=== PATIENT | male | born 1990 | race Caucasian/White ===

== ENCOUNTER 2017-02-13 21:41 | Emergency (ER) | payer MEDICAID ==
[2017-02-13 21:53] VITALS: RESP 16; TEMP 98; O2SAT 99
[2017-02-13 21:54] VITALS: PULSE 54
--- NOTE | 2017-02-13 23:21 | ED PDOC ---
HPI: General Adult Time Seen by Provider: 02/13/17 22:12 Chief Complaint (Nursing): Medical Clearance Chief Complaint (Provider): Chest pain when coughing, feverish History Per: Patient History/Exam Limitations: no limitations Onset/Duration Of Symptoms: Days Have you had recent travel within the past 21 days to any of the following countries: [place], [place], [place] or [place]?: No Current Symptoms Are (Timing): Still Present Additional Complaint(s): Pt states he has been coughing for a week and has chest pain when he is coughing. Pt also reports feeling feverish. Pt states his has history of bipolar disorder and has been taking hsi medications as prescribed. Pt denies SI/HI in ER and is cooperative. Past Medical History Reviewed: Historical Data, Nursing Documentation, Vital Signs Vital Signs: Last Vital Signs Temp 98.0 F 02/13/17 21:47 Pulse 54 L 02/13/17 21:47 Resp 16 02/13/17 21:47 BP Pulse Ox 99 02/13/17 23:21 - Medical History PMH: Bipolar Disorder, Depression, Schizophrenia - Family History Family History: States: No Known Family Hx - Living Arrangements Living Arrangements: With Family - Social History Alcohol: Occasional Drugs: Cannabis, Cocaine, Opiates - Allergies Allergies/Adverse Reactions: Allergies Allergy/AdvReac Type Severity Reaction Status Date / Time Penicillins Allergy RASH Verified 02/13/17 21:46 Review of Systems ROS Statement: Except As Marked, All Systems Reviewed And Found Negative Cardiovascular: Positive for: Chest Pain Respiratory: Positive for: Cough Physical Exam - Reviewed Nursing Documentation Reviewed: Yes Vital Signs Reviewed: Yes - Physical Exam Appears: Positive for: Well, Non-toxic, No Acute Distress Head Exam: Positive for: ATRAUMATIC, NORMAL INSPECTION, NORMOCEPHALIC Skin: Positive for: Normal Color, Warm, DRY Eye Exam: Positive for: Normal appearance ENT: Positive for: Normal ENT Inspection Neck: Positive for: Normal, Painless ROM Cardiovascular/Chest: Positive for: Regular Rate, Rhythm Respiratory: Positive for: Normal Breath Sounds. Negative for: Accessory Muscle Use, Respiratory Distress Gastrointestinal/Abdominal: Positive for: Normal Exam, Bowel Sounds, Soft Back: Positive for: Normal Inspection Extremity: Positive for: Normal ROM Neurologic/Psych: Positive for: Alert, Oriented - Laboratory Results Result Diagrams: 02/13/17 23:25 02/13/17 23:25 - ECG O2 Sat by Pulse Oximetry: 99 Pulse Ox Interpretation: Normal Medical Decision Making Medical Decision Making: Abnormal EKG. Labs ordered. cxr - normal Troponin negative. Disposition - Clinical Impression Clinical Impression: URI (upper respiratory infection) - Patient ED Disposition Is Patient to be Admitted: No Counseled Patient/Family Regarding: Diagnosis, Need For Followup, Rx Given - Disposition Disposition: Routine/Home Disposition Time: 00:01 Condition: GOOD Additional Instructions: Pt. is medically and psychiatrically stable for incarceration. Instructions: Upper Respiratory Infection (ED)
[2017-02-13 23:31] LABS: HEMATOCRIT 42.3 % (35.0-51.0); MEAN CELL VOLUME 85.8 fl (80.0-94.0); MEAN CORPUSCULAR HEMOGLOBIN 29.4 pg (27.0-31.0); MEAN CORPUSCULAR HGB CONC 34.3 g/dL (33.0-37.0); RED CELL DISTRIBUTION WIDTH 14.2 % (11.5-14.5); WHITE BLOOD COUNT 9.5 K/uL (4.8-10.8)
[2017-02-13 23:44] LABS: ALB/GLOB RATIO 1.4 (1.0-2.1); ALKALINE PHOSPHATASE 55 U/L (38-126); ALT/SGPT 37 U/L (21-72); AST/SGOT 35 U/L (17-59); BILIRUBIN,TOTAL 0.6 mg/dl (0.2-1.3); BLOOD UREA NITROGEN 18 mg/dl (9-20); CALCIUM 9.1 mg/dL (8.4-10.2); CARBON DIOXIDE 25 mmol/L (22-30); CHLORIDE 104 mmol/L (98-107); GFR AFRICAN-AMERICAN > 60; GLUCOSE,RANDOM 90 mg/dL (75-110); POTASSIUM 3.6 MMOL/L (3.6-5.0); SODIUM 142 mmol/l (132-148); TOTAL PROTEIN 6.7 G/DL (6.3-8.2)
--- NOTE | 2017-02-14 09:26 | RAD ---
HISTORY: cough COMPARISON: No prior. FINDINGS: LUNGS: No active pulmonary disease. PLEURA: No significant pleural effusion identified, no pneumothorax apparent. CARDIOVASCULAR: Normal. OSSEOUS STRUCTURES: No significant abnormalities. VISUALIZED UPPER ABDOMEN: Normal. OTHER FINDINGS: None. IMPRESSION: No active disease.
--- NOTE | 2017-02-14 11:20 | CARD ---
APPROVED REPORT EKG Measurement Heart [id number] CT [id number] <Conclusion> Sinus bradycardia with sinus arrhythmia Nonspecific ST abnormality Abnormal ECG
== END 2017-02-14 00:12 ==
LOC: H.ER 21:41
DX: J06.9 Acute upper respiratory infection, unspecified (principal); R05 Cough

== ENCOUNTER 2018-02-21 01:45 | Inpatient (IN) | payer MEDICAID ==
[2018-02-21 03:04] LABS: BASO # 0.1 K/uL (0.0-0.2); BASO % 0.4 % (0.0-2.0); EOS # 0.1 K/uL (0.0-0.7); EOS % 0.5 % (0.0-4.0); HEMOGLOBIN 15.4 g/dL (12.0-18.0); LYMPH # 3.3 K/uL (1.0-4.3); MEAN CELL VOLUME 85.1 fl (80.0-94.0); MEAN CORPUSCULAR HGB CONC 34.1 g/dL (33.0-37.0); MEAN PLATELET VOLUME 8.6 fl (7.2-11.7); MONO # 1.2 K/uL (0.0-0.8); MONO % 8.3 % (0.0-10.0); NEUT # 9.6 K/uL (1.8-7.0); NEUT % 67.8 % (50.0-75.0); NRBC % 0.1 % (0.0-0.0); RBC 5.3 Mil/uL (4.40-5.90); RED CELL DISTRIBUTION WIDTH 13.7 % (11.5-14.5); WHITE BLOOD COUNT 14.2 K/uL (4.8-10.8)
[2018-02-21 03:18] LABS: ALB/GLOB RATIO 1.2 (1.0-2.1); ALBUMIN 4.5 g/dL (3.5-5.0); ALT/SGPT 55 U/L (21-72); AST/SGOT 56 U/L (17-59); BLOOD UREA NITROGEN 22 mg/dl (9-20); CALCIUM 9.4 mg/dL (8.4-10.2); GFR AFRICAN-AMERICAN > 60; GFR NON-AFRICAN AMERICAN > 60
[2018-02-21 03:21] LABS: SQUAMOUS EPITHIAL < 1 /hpf (0-5); URINE BACTERIA RARE (<OCC); URINE BILIRUBIN NEGATIVE (NEGATIVE); URINE BLOOD NEGATIVE (NEGATIVE); URINE CLARITY CLOUDY (Clear); URINE COLOR YELLOW (YELLOW); URINE GLUCOSE (UA) NEG (Normal); URINE LEUKOCYTE ESTERASE NEG Leu/uL (Negative); URINE PROTEIN 100 mg/dL (NEGATIVE); URINE UROBILINOGEN 0.2-1.0 mg/dL (0.2-1.0)
--- NOTE | 2018-02-21 03:24 | ED PDOC ---
HPI: General Adult Time Seen by Provider: 02/21/18 02:17 Chief Complaint (Nursing): Chest Pain History Per: Patient Additional Complaint(s): Pt. states he has not taken his seroquel in 2 months and he's had worsening auditory hallucinations. Reports that the voices have been giving him directions as to what to do with his life. States he took cocaine, smoked marijuana, and drank alcohol today to drown out the voices. He also developed chest pain which prompted him to come to ED. Pt. is uncertain as to when the chest pain started. States pain is localized to the L side. Denies head injury, fever, cough, SOB, palpitations, hx of DVT or PE, leg pain, head injury, SI/HI. Past Medical History Reviewed: Historical Data, Nursing Documentation, Vital Signs Vital Signs: Last Vital Signs Temp 98.5 F 02/21/18 01:55 Pulse 97 H 02/21/18 06:07 Resp 18 02/21/18 05:12 BP 133/71 02/21/18 05:12 Pulse Ox 100 02/21/18 06:07 - Medical History PMH: Bipolar Disorder, Depression, Schizophrenia Denies: Diabetes, Hepatitis, HIV, HTN, Seizures, Sexually Transmitted Disease - Surgical History Surgical History: No Surg Hx - Family History Family History: Denies: [place] - Social History Current smoker - smoking cessation education provided: Yes Ex-Smoker (has not smoked in the last 12 months): No Drugs: Cannabis, Cocaine - Allergies Allergies/Adverse Reactions: Allergies Allergy/AdvReac Type Severity Reaction Status Date / Time Penicillins Allergy RASH Verified 02/13/17 21:46 Review of Systems ROS Statement: Except As Marked, All Systems Reviewed And Found Negative Physical Exam - Reviewed Nursing Documentation Reviewed: Yes Vital Signs Reviewed: Yes - Physical Exam Appears: Positive for: Well, Non-toxic, No Acute Distress Head Exam: Positive for: ATRAUMATIC, NORMAL INSPECTION, NORMOCEPHALIC Skin: Positive for: Normal Color, Warm. Negative for: Rash Eye Exam: Positive for: EOMI, Normal appearance, PERRL ENT: Positive for: Normal ENT Inspection Neck: Positive for: Normal, Painless ROM Cardiovascular/Chest: Positive for: Regular Rate, Rhythm Respiratory: Positive for: CNT, Normal Breath Sounds Gastrointestinal/Abdominal: Positive for: Normal Exam, Soft. Negative for: Tenderness Back: Positive for: Normal Inspection Extremity: Positive for: Normal ROM Neurologic/Psych: Positive for: Alert, Oriented, Mood/Affect (appears manic but is consolable). Negative for: Aphasia, Facial Droop - Laboratory Results Result Diagrams: 02/21/18 02:59 02/21/18 02:59 - ECG ECG: Positive for: Interpreted By Me ECG Rhythm: Positive for: Sinus Rhythm. Negative for: ST/T Changes Rate: 97 O2 Sat by Pulse Oximetry: 100 - Radiology X-Ray: Interpreted by Me (CXR) X-Ray Interpretation: No Acute Disease - Progress ED Course And Treament: Labs, ASA chew, xanax PO, CXR ordered. Pt. placed on playground monitor. [id number] On re-evaluation, pt. sleeping comfortably easily arousable. Reports feeling more calm but chest pain is present although improved. Informed of plan and agrees. 0610 Case d/w Dr. Velez and arrangements made for 23 hr tele observation. Disposition - Clinical Impression Clinical Impression: Chest pain - Patient ED Disposition Is Patient to be Admitted: Yes - Disposition Disposition Time: 02:22 Condition: STABLE
[2018-02-21 03:34] LABS: BARBITURATES, UR NEGATIVE (NEGATIVE)
[2018-02-21 03:35] LABS: BENZODIAZEPINES, UR NEGATIVE (NEGATIVE); OPIATES, UR NEGATIVE (NEGATIVE); PHENCYCLIDINE, UR NEGATIVE (NEGATIVE)
--- NOTE | 2018-02-21 09:22 | RAD ---
HISTORY: chest pain COMPARISON: Comparison chest dated 02/13/2017. FINDINGS: LUNGS: Poor inspiration with low lung volumes, crowded bronchovascular markings and mild bibasilar atelectasis. PLEURA: No significant pleural effusion identified, no pneumothorax apparent. CARDIOVASCULAR: Normal. OSSEOUS STRUCTURES: No significant abnormalities. VISUALIZED UPPER ABDOMEN: Normal. OTHER FINDINGS: None. IMPRESSION: Poor inspiration with low lung volumes, crowded bronchovascular markings and mild bibasilar atelectasis.
--- NOTE | 2018-02-21 12:13 | CP.PCM.CON ---
History of Present Illness - History of Present Illness History of Present Illness: Psychiatry consult note CC: "I have been hearing voices." HPI: 28 yo male w/ self reported history of bipolar disorder, current cocaine and marijuana abuse, presents w/ worsening hallucinations in the context of medication non-compliance. +Depressed mood +Racing thoughts +Sleep disturbances +Normal appetite. No VH/SI/HI. He believes that Seroquel was most helpful for him in the past. Patient reports that he want to receive medical and psychiatric treatment and denies wanting to leave AMA. He is A + O x 3 and has capacity to make medical decisions at this time. PPHx: H/o past psychiatric admission and treatment in residential w/ Trileptal. He is not currently compliant with treatment or medications. PMHx: Denies acute medical issues ALL: PCN SHx: Recently incarcerated for receiving [employer]. +Cocaine and marijuana abuse. MSE: A + O x 3, calm, cooperative, good eye contact, speech normal, mood/affect - depressed, thought process linear/coherent, thought content- no delusions/ paranoia, +AH, no VH/SI/HI, fair I, poor J Impression: 28 yo male presents w/ worsening depression and auditory hallucinations in the context of substance abuse and non-compliance with medications. Dx: Bipolar disorder w/ psychotic features vs schizoaffective disorder vs substance induced mood disorder -Patient would benefit from psychiatric admission when he is medically stable -Restart Seroquel at 100 mg PO HS and titrate gradually -Nicotine patch Past Patient History - Past Social History Drugs: Cannabis, Cocaine - CARDIAC Hx Hypertension: No - PULMONARY Hx Tuberculosis: No - NEUROLOGICAL Hx Seizures: No - HEMATOLOGICAL/ONCOLOGICAL Hx Human Immunodeficiency Virus (HIV): No - GENITOURINARY/GYNECOLOGICAL Hx Sexually Transmitted Disorders: No - PSYCHIATRIC Hx Bipolar Disorder: Yes Hx Depression: Yes Hx Schizophrenia: Yes - SURGICAL HISTORY Hx Surgeries: No - ANESTHESIA Hx Anesthesia: Yes Hx Anesthesia Reactions: No Meds Allergies/Adverse Reactions: Allergies Allergy/AdvReac Type Severity Reaction Status Date / Time Penicillins Allergy RASH Verified 02/13/17 21:46 - Medications Medications: Current Medications Aspirin (Aspirin Chewable) 81 mg PO DAILY [facility] Last Admin: 02/21/18 12:11 Dose: Not Given Citalopram Hydrobromide (Celexa) 20 mg PO DAILY [facility] Enoxaparin Sodium (Lovenox) 40 mg SC DAILY [facility] PRN Reason: Protocol Quetiapine Fumarate (Seroquel) 300 mg PO BID [facility] Results - Vital Signs Recent Vital Signs: Last Vital Signs Temp 98.5 F 02/21/18 01:55 Pulse 97 H 02/21/18 06:12 Resp 18 02/21/18 05:12 BP 133/71 02/21/18 05:12 Pulse Ox 100 02/21/18 06:12 - Labs Result Diagrams: 02/21/18 02:59 02/21/18 02:59 Labs: Laboratory Results - last 24 hr 02/21/18 02/21/18 02/21/18 02:59 02:59 03:13 WBC 14.2 H RBC 5.30 Hgb 15.4 Hct 45.1 MCV 85.1 MCH 29.0 MCHC 34.1 RDW 13.7 Plt Count 227 MPV 8.6 Neut % (Auto) 67.8 Lymph % (Auto) 23.0 [place] % (Auto) 8.3 Eos % (Auto) 0.5 Baso % (Auto) 0.4 Neut # (Auto) 9.6 H Lymph # (Auto) 3.3 [place] # (Auto) 1.2 H Eos # (Auto) 0.1 Baso # (Auto) 0.1 Sodium 141 Potassium 3.4 L Chloride 100 Carbon Dioxide 26 Anion Gap 18 BUN 22 H Creatinine 1.2 Est GFR ( Amer) > 60 Est GFR (Non-Af Amer) > 60 Random Glucose 95 Calcium 9.4 Total Bilirubin 0.7 AST 56 ALT 55 Alkaline Phosphatase 58 Troponin I < 0.0120 Total Protein 8.1 Albumin 4.5 Globulin 3.6 Albumin/Globulin Ratio 1.2 Urine Color Urine Clarity Urine pH Ur Specific [place] Urine Protein Urine Glucose (UA) Urine Ketones Urine Blood Urine Nitrate Urine Bilirubin Urine Urobilinogen Ur Leukocyte Esterase Urine RBC (Auto) Urine Microscopic WBC Ur Squamous Epith Cells Urine Bacteria Urine Opiates Screen Negative Urine Methadone Screen Negative Ur Barbiturates Screen Negative Ur Phencyclidine Scrn Negative Ur Amphetamines Screen Negative U Benzodiazepines Scrn Negative U Oth Cocaine Metabols Positive H U Cannabinoids Screen Positive H Alcohol, Quantitative < 10 02/21/18 03:13 WBC RBC Hgb Hct MCV MCH MCHC RDW Plt Count MPV Neut % (Auto) Lymph % (Auto) [place] % (Auto) Eos % (Auto) Baso % (Auto) Neut # (Auto) Lymph # (Auto) [place] # (Auto) Eos # (Auto) Baso # (Auto) Sodium Potassium Chloride Carbon Dioxide Anion Gap BUN Creatinine Est GFR ( Amer) Est GFR (Non-Af Amer) Random Glucose Calcium Total Bilirubin AST ALT Alkaline Phosphatase Troponin I Total Protein Albumin Globulin Albumin/Globulin Ratio Urine Color Yellow Urine Clarity Cloudy Urine pH 6.0 Ur Specific [place] 1.032 H Urine Protein 100 Urine Glucose (UA) Neg Urine Ketones 80 Urine Blood Negative Urine Nitrate Negative Urine Bilirubin Negative Urine Urobilinogen 0.2-1.0 Ur Leukocyte Esterase Neg Urine RBC (Auto) 8 H Urine Microscopic WBC 3 Ur Squamous Epith Cells < 1 Urine Bacteria Rare Urine Opiates Screen Urine Methadone Screen Ur Barbiturates Screen Ur Phencyclidine Scrn Ur Amphetamines Screen U Benzodiazepines Scrn U Oth Cocaine Metabols U Cannabinoids Screen Alcohol, Quantitative
--- NOTE | 2018-02-21 15:21 | HP ---
ADMITTING HISTORY AND PHYSICAL HISTORY OF PRESENT ILLNESS: Mr. Castillo is a 28-year-old male who was admitted via the Emergency Room to telemetry because of chest pain and cocaine use. He indicate that he recently got out of nursing home and has not been taking his medications that he uses for schizophrenia and bipolar disorder and showed up in the Emergency Room with above symptoms. He has been very belligerent and refusing to be treated in the Emergency Room. Crisis intervention was called and the family was given some Ativan, finally calm down. He was refusing to have blood work and echocardiogram done in the Emergency Room. PAST MEDICAL HISTORY: He has a past medical history of bipolar disorder, depression, and schizophrenia. FAMILY HISTORY: Noncontributory. SOCIAL HISTORY: Socially, the patient uses cocaine and marijuana and he also indicates that he is and ex-smoker, has not smoke for a month. He has no clear family relation except for his sister who he does not talk to and recently got out of nursing home. PHYSICAL EXAMINATION GENERAL: The patient is alert and oriented, very apprehensive and agitated, but has calm down with medications. VITAL SIGNS: Blood pressure of 133/71 with a pulse of 97, and respiratory rate of 18. He is afebrile. O2 saturation of 100% on room air. SKIN: Shows fair turgor. HEENT: Pupils are equal and reactive to light and accommodation. Mouth shows fair hygiene. LUNGS: Clear. HEART: Regular. No murmurs or gallop. ABDOMEN: Soft and nontender. No organomegaly. EXTREMITIES: Showed no edema or cyanosis. CENTRAL NERVOUS SYSTEM: Exam is remarkable for agitation. Otherwise, no gross deficits. LABORATORY DATA: WBC of 14.2, hemoglobin of 15.4, and platelet count of 227,000. Sodium of 141, potassium of 3.4, BUN of 22, and creatinine of 1.2. Troponin is less than 0.012. DIAGNOSTIC DATA: EKG; official report is still pending, but indicates regular sinus rhythm. Chest x-ray shows no acute cardiopulmonary pathology, chest shows poor inspiratory effort. IMPRESSION: Chest pain probably secondary to substance abuse (cocaine), history of bipolar disorder and schizophrenia, and history of multi-substance abuse. PLAN: Crisis intervention involvement and psychiatric evaluation for possible commitment to the psychiatric word. We would obtain cardiology evaluation for appropriate therapy. We will give antianxiety medications on a p.r.n. basis. Abdoulaye Velez MD [facility] # [id number]
[2018-02-21 19:23] VITALS: BP 141/84; PULSE 75; RESP 20; TEMP 98.2; O2SAT 94
--- NOTE | 2018-02-21 20:21 | CP.PCM.CON ---
History of Present Illness - History of Present Illness History of Present Illness: PT ADMITTED WITH CP. HE STATES THE CP WAS DIFFUSE OVER ANTERIOR UPPER CHEST AND LOWER LEFT CHEST. NO SOB, PALP, LH, DIZZINESS, NAUSEA. PT DENIES HX OF CAD , DM, HTN, DYSLIPIDEMIA OR FAM HX. PTS EKG IS NML, TROP - X 2. I REVIEWED ECHO , LVEF IS WNL, NO SIG VALVULAR ABN. PTS TOX SCREEN WAS POSITIVE Past Patient History - Past Social History Drugs: Cannabis, Cocaine - CARDIAC Hx Cardiac Disorders: No - PULMONARY Hx Tuberculosis: No - NEUROLOGICAL Hx Seizures: No - HEMATOLOGICAL/ONCOLOGICAL Hx Human Immunodeficiency Virus (HIV): No - GENITOURINARY/GYNECOLOGICAL Hx Sexually Transmitted Disorders: No - PSYCHIATRIC Hx Psychophysiologic Disorder: Yes - SURGICAL HISTORY Hx Surgeries: No - ANESTHESIA Hx Anesthesia: Yes Hx Anesthesia Reactions: No Meds Allergies/Adverse Reactions: Allergies Allergy/AdvReac Type Severity Reaction Status Date / Time Penicillins Allergy RASH Verified 02/13/17 21:46 - Medications Medications: Current Medications Aspirin (Aspirin Chewable) 81 mg PO DAILY [facility] Last Admin: 02/21/18 12:11 Dose: Not Given Citalopram Hydrobromide (Celexa) 20 mg PO DAILY [facility] Last Admin: 02/21/18 13:05 Dose: 20 mg Enoxaparin Sodium (Lovenox) 40 mg SC DAILY [facility] PRN Reason: Protocol Nicotine (Nicoderm Cq) 1 patch TD DAILY [facility] Quetiapine Fumarate (Seroquel) 100 mg PO Q12 [facility] Last Admin: 02/21/18 14:27 Dose: 100 mg Results - Vital Signs Recent Vital Signs: Last Vital Signs Temp 98.2 F 02/21/18 19:22 Pulse 75 02/21/18 19:22 Resp 20 02/21/18 19:22 BP 141/84 02/21/18 19:22 Pulse Ox 94 L 02/21/18 19:22 - Labs Result Diagrams: 02/21/18 02:59 02/21/18 02:59 Labs: Laboratory Results - last 24 hr 02/21/18 02/21/18 02/21/18 02:59 02:59 03:13 WBC 14.2 H RBC 5.30 Hgb 15.4 Hct 45.1 MCV 85.1 MCH 29.0 MCHC 34.1 RDW 13.7 Plt Count 227 MPV 8.6 Neut % (Auto) 67.8 Lymph % (Auto) 23.0 [place] % (Auto) 8.3 Eos % (Auto) 0.5 Baso % (Auto) 0.4 Neut # (Auto) 9.6 H Lymph # (Auto) 3.3 [place] # (Auto) 1.2 H Eos # (Auto) 0.1 Baso # (Auto) 0.1 Sodium 141 Potassium 3.4 L Chloride 100 Carbon Dioxide 26 Anion Gap 18 BUN 22 H Creatinine 1.2 Est GFR ( Amer) > 60 Est GFR (Non-Af Amer) > 60 Random Glucose 95 Calcium 9.4 Total Bilirubin 0.7 AST 56 ALT 55 Alkaline Phosphatase 58 Troponin I < 0.0120 Total Protein 8.1 Albumin 4.5 Globulin 3.6 Albumin/Globulin Ratio 1.2 Urine Color Urine Clarity Urine pH Ur Specific [place] Urine Protein Urine Glucose (UA) Urine Ketones Urine Blood Urine Nitrate Urine Bilirubin Urine Urobilinogen Ur Leukocyte Esterase Urine RBC (Auto) Urine Microscopic WBC Ur Squamous Epith Cells Urine Bacteria Urine Opiates Screen Negative Urine Methadone Screen Negative Ur Barbiturates Screen Negative Ur Phencyclidine Scrn Negative Ur Amphetamines Screen Negative U Benzodiazepines Scrn Negative U Oth Cocaine Metabols Positive H U Cannabinoids Screen Positive H Alcohol, Quantitative < 10 02/21/18 02/21/18 03:13 12:22 WBC RBC Hgb Hct MCV MCH MCHC RDW Plt Count MPV Neut % (Auto) Lymph % (Auto) [place] % (Auto) Eos % (Auto) Baso % (Auto) Neut # (Auto) Lymph # (Auto) [place] # (Auto) Eos # (Auto) Baso # (Auto) Sodium Potassium Chloride Carbon Dioxide Anion Gap BUN Creatinine Est GFR ( Amer) Est GFR (Non-Af Amer) Random Glucose Calcium Total Bilirubin AST ALT Alkaline Phosphatase Troponin I < 0.0120 Total Protein Albumin Globulin Albumin/Globulin Ratio Urine Color Yellow Urine Clarity Cloudy Urine pH 6.0 Ur Specific [place] 1.032 H Urine Protein 100 Urine Glucose (UA) Neg Urine Ketones 80 Urine Blood Negative Urine Nitrate Negative Urine Bilirubin Negative Urine Urobilinogen 0.2-1.0 Ur Leukocyte Esterase Neg Urine RBC (Auto) 8 H Urine Microscopic WBC 3 Ur Squamous Epith Cells < 1 Urine Bacteria Rare Urine Opiates Screen Urine Methadone Screen Ur Barbiturates Screen Ur Phencyclidine Scrn Ur Amphetamines Screen U Benzodiazepines Scrn U Oth Cocaine Metabols U Cannabinoids Screen Alcohol, Quantitative - EKG Data EKG Interpreted by: Myself EKG shows normal: Sinus rhythm Rate: Normal Assessment & Plan (1) Substance abuse Status: Acute (2) Chest pain Status: Acute - Assessment and Plan (Free Text) Plan: GIVEN RESULTS I DOUBT A CARDIAC ETIOLOGY FOR CP. PTS CP HAS RESOLVED. HE CAN BE D/C.
[2018-02-22] MEDS ORDERED: Enoxaparin 40 mg Syringe SC SCH (09:00)
--- NOTE | 2018-02-23 09:30 | CP.PCM.DIS ---
Provider - Provider Date of Admission: 02/21/18 12:08 Attending physician: Abdoulaye Velez MD Time Spent in preparation of Discharge (in minutes): 30 Diagnosis - Discharge Diagnosis (1) Chest pain Status: Acute (2) Substance abuse Status: Acute Hospital Course - Lab Results Lab Results: Most Recent Lab Values WBC 14.2 K/uL (4.8-10.8) H 02/21/18 02:59 RBC 5.30 Mil/uL (4.40-5.90) 02/21/18 02:59 Hgb 15.4 g/dL (12.0-18.0) 02/21/18 02:59 Hct 45.1 % (35.0-51.0) 02/21/18 02:59 MCV 85.1 fl (80.0-94.0) 02/21/18 02:59 MCH 29.0 pg (27.0-31.0) 02/21/18 02:59 MCHC 34.1 g/dL (33.0-37.0) 02/21/18 02:59 RDW 13.7 % (11.5-14.5) 02/21/18 02:59 Plt Count 227 K/uL (130-400) 02/21/18 02:59 MPV 8.6 fl (7.2-11.7) 02/21/18 02:59 Neut % (Auto) 67.8 % (50.0-75.0) 02/21/18 02:59 Lymph % (Auto) 23.0 % (20.0-40.0) 02/21/18 02:59 [place] % (Auto) 8.3 % (0.0-10.0) 02/21/18 02:59 Eos % (Auto) 0.5 % (0.0-4.0) 02/21/18 02:59 Baso % (Auto) 0.4 % (0.0-2.0) 02/21/18 02:59 Neut # (Auto) 9.6 K/uL (1.8-7.0) H 02/21/18 02:59 Lymph # (Auto) 3.3 K/uL (1.0-4.3) 02/21/18 02:59 [place] # (Auto) 1.2 K/uL (0.0-0.8) H 02/21/18 02:59 Eos # (Auto) 0.1 K/uL (0.0-0.7) 02/21/18 02:59 Baso # (Auto) 0.1 K/uL (0.0-0.2) 02/21/18 02:59 Sodium 141 mmol/l (132-148) 02/21/18 02:59 Potassium 3.4 MMOL/L (3.6-5.0) L 02/21/18 02:59 Chloride 100 mmol/L (98-107) 02/21/18 02:59 Carbon Dioxide 26 mmol/L (22-30) 02/21/18 02:59 Anion Gap 18 (10-20) 02/21/18 02:59 BUN 22 mg/dl (9-20) H 02/21/18 02:59 Creatinine 1.2 mg/dl (0.8-1.5) 02/21/18 02:59 Est GFR ( Amer) > 60 02/21/18 02:59 Est GFR (Non-Af Amer) > 60 02/21/18 02:59 Random Glucose 95 mg/dL (75-110) 02/21/18 02:59 Calcium 9.4 mg/dL (8.4-10.2) 02/21/18 02:59 Total Bilirubin 0.7 mg/dl (0.2-1.3) 02/21/18 02:59 AST 56 U/L (17-59) 02/21/18 02:59 ALT 55 U/L (21-72) 02/21/18 02:59 Alkaline Phosphatase 58 U/L (38-126) 02/21/18 02:59 Troponin I < 0.0120 ng/mL (0.00-0.120) 02/21/18 12:22 Total Protein 8.1 G/DL (6.3-8.2) 02/21/18 02:59 Albumin 4.5 g/dL (3.5-5.0) 02/21/18 02:59 Globulin 3.6 gm/dL (2.2-3.9) 02/21/18 02:59 Albumin/Globulin Ratio 1.2 (1.0-2.1) 02/21/18 02:59 Urine Color Yellow (YELLOW) 02/21/18 03:13 Urine Clarity Cloudy (Clear) 02/21/18 03:13 Urine pH 6.0 (5.0-8.0) 02/21/18 03:13 Ur Specific [place] 1.032 (1.003-1.030) H 02/21/18 03:13 Urine Protein 100 mg/dL (NEGATIVE) 02/21/18 03:13 Urine Glucose (UA) Neg mg/dL (Normal) 02/21/18 03:13 Urine Ketones 80 mg/dL (NEGATIVE) 02/21/18 03:13 Urine Blood Negative (NEGATIVE) 02/21/18 03:13 Urine Nitrate Negative (NEGATIVE) 02/21/18 03:13 Urine Bilirubin Negative (NEGATIVE) 02/21/18 03:13 Urine Urobilinogen 0.2-1.0 mg/dL (0.2-1.0) 02/21/18 03:13 Ur Leukocyte Esterase Neg [place]/uL (Negative) 02/21/18 03:13 Urine RBC (Auto) 8 /hpf (0-3) H 02/21/18 03:13 Urine Microscopic WBC 3 /hpf (0-5) 02/21/18 03:13 Ur Squamous Epith Cells < 1 /hpf (0-5) 02/21/18 03:13 Urine Bacteria Rare (<OCC) 02/21/18 03:13 Urine Opiates Screen Negative (NEGATIVE) 02/21/18 03:13 Urine Methadone Screen Negative (NEGATIVE) 02/21/18 03:13 Ur Barbiturates Screen Negative (NEGATIVE) 02/21/18 03:13 Ur Phencyclidine Scrn Negative (NEGATIVE) 02/21/18 03:13 Ur Amphetamines Screen Negative (NEGATIVE) 02/21/18 03:13 U Benzodiazepines Scrn Negative (NEGATIVE) 02/21/18 03:13 U Oth Cocaine Metabols Positive (NEGATIVE) H 02/21/18 03:13 U Cannabinoids Screen Positive (NEGATIVE) H 02/21/18 03:13 Alcohol, Quantitative < 10 mg/dl (0-10) 02/21/18 02:59 - Hospital Course Hospital Course: PT WALKED OUT AGAINST MEDICAL ADVISE Discharge Exam - Head Exam Head Exam: ATRAUMATIC, NORMAL INSPECTION, NORMOCEPHALIC Discharge Plan - Follow Up Plan Condition: STABLE Disposition: AGAINST MEDICAL ADVICE
--- NOTE | 2018-02-23 13:11 | CARD ---
APPROVED REPORT EXAM: Two-dimensional and M-mode echocardiogram with Doppler and color Doppler. Other Information Quality : GoodRhythm : NSR INDICATION Chest Pain 2D DIMENSIONS IVSd0.81 (0.7-1.1cm)LVDd5.89 (3.9-5.9cm) LVOT Diameter2.34 (1.8-2.4cm)PWd0.72 (0.7-1.1cm) IVSs0.74 (0.8-1.2cm)LVDs5.80 (2.5-4.0cm) FS (%) 1.6 %PWs0.69 (0.8-1.2cm) M-Mode DIMENSIONS Left Atrium (MM)3.85 (2.5-4.0cm)IVSd0.79 (0.7-1.1cm) Aortic Root3.38 (2.2-3.7cm)LVDd6.97 (4.0-5.6cm) Aortic Cusp Exc.1.97 (1.5-2.0cm)PWd0.97 (0.7-1.1cm) IVSs1.47 cmFS (%) 42 % LVDs4.06 (2.0-3.8cm)PWs1.59 cm Mitral Valve MV E Xucuoikv90.0cm/sMV DECEL [id number] A Tykcowcn93.4cm/s MV NON52cyN/A ratio1.7MVA (PHT)2.62cm2 TDI Lateral E' Peak V18.97cm/sMedial E' Peak V9.29cm/sE/Lateral E'2.8 E/Medial E'5.7 Tricuspid Valve TR Peak Tskuezrr313as/sRAP [id number] Peak Gr.17mmHg [id number] LEFT VENTRICLE The left ventricle is normal size. There is normal left ventricular wall thickness. The left ventricular function is normal. The left ventricular ejection fraction is 55% There is normal LV segmental wall motion. The left ventricular diastolic function is normal. No left ventricle thrombus noted on this study. There is no ventricular septal defect visualized. There is no left ventricular aneurysm. There is no mass noted in the left ventricle. RIGHT VENTRICLE The right ventricle is normal size. There is normal right ventricular wall thickness. The right ventricular systolic function is normal. ATRIA The left atrium size is normal. The right atrium size is normal. The interatrial septum is intact with no evidence for an atrial septal defect. AORTIC VALVE The aortic valve is normal in structure. No aortic regurgitation is present. There is no aortic valvular stenosis. There is no aortic valvular vegetation. MITRAL VALVE The mitral valve is normal in structure. There is no evidence of mitral valve prolapse. There is no mitral valve stenosis. There is no mitral valve regurgitation noted. TRICUSPID VALVE The tricuspid valve is normal in structure. There is no tricuspid valve regurgitation noted. There is no tricuspid valve prolapse or vegetation. There is no tricuspid valve stenosis. PULMONIC VALVE The pulmonary valve is normal in structure. There is no pulmonic valvular regurgitation. There is no pulmonic valvular stenosis. GREAT VESSELS The aortic root is normal in size. The ascending aorta is normal in size. The IVC is normal in size and collapses >50% with inspiration. PERICARDIAL EFFUSION The pericardium appears normal. There is no pleural effusion. <Conclusion> Normal Echocardiogram
--- NOTE | 2018-02-23 13:41 | CARD ---
APPROVED REPORT EKG Measurement Heart [id number] <Conclusion> Normal sinus rhythm Normal ECG
== END 2018-02-21 22:25 | disposition left against medical advice (07) | DRG 313 ==
LOC: H.ER 01:45 → H.ERHOLD 04:36 → OBSVTOIN 12:08 → H.TEL 18:30
PROVIDERS: ADMIT Internal Medicine Pulmonary Disease; ATTEND Internal Medicine Pulmonary Disease
DX: R07.9 Chest pain, unspecified (principal); F14.10 Cocaine abuse, uncomplicated; F17.200 Nicotine dependence, unspecified, uncomplicated; F20.9 Schizophrenia, unspecified; F31.9 Bipolar disorder, unspecified; Z91.14 Patient's other noncompliance with medication regimen; F12.10 Cannabis abuse, uncomplicated

== ENCOUNTER 2018-03-06 17:47 | Emergency (ER) | payer MEDICAID ==
[2018-03-06 18:10] VITALS: BP 114/75; PULSE 71; RESP 18; TEMP 98.4; O2SAT 98
[2018-03-06] MEDS ORDERED: Bacitracin OINT 15GM TOP STA (18:18)
[2018-03-06] MEDS ORDERED: Bacitracin 500 Units/gm Oint Foilpak UD ONE (18:45)
--- NOTE | 2018-03-06 18:53 | ED PDOC ---
Lower Extremity Pain/Injury Time Seen by Provider: 03/06/18 18:10 Chief Complaint (Nursing): Lower Extremity Problem/Injury Chief Complaint (Provider): Lower Extremity Problem/Injury History Per: Patient History/Exam Limitations: no limitations Onset/Duration Of Symptoms: Persistent (x3 weeks), Worse Since (x2 days) Current Symptoms Are (Timing): Still Present Additional Complaint(s): 28 year old male with medical history of diabetes, bipolar disorder and schizophrenia, presents to the emergency department for an evaluation of blisters on the bottom of his feet bilaterally ongoing for 3 weeks but worsen in the last 2 days. Patient admits to being homeless and walking excessively. He also reports having a cough for 1 week but it has improved recently. He denies any fever, chills, feet pain, chest pain, shortness of breath or hemoptysis. PMD: none provided Past Medical History Reviewed: Historical Data, Nursing Documentation, Vital Signs Vital Signs: Last Vital Signs Temp 98.4 F 03/06/18 18:05 Pulse 71 03/06/18 18:05 Resp 18 03/06/18 18:05 BP 114/75 03/06/18 18:05 Pulse Ox 98 03/06/18 18:05 - Medical History PMH: Bipolar Disorder, Depression, Diabetes, Schizophrenia Denies: Hepatitis, HIV, HTN, Seizures, Sexually Transmitted Disease - Surgical History Surgical History: No Surg Hx - Family History Family History: Denies: VT - Social History Current smoker - smoking cessation education provided: No Alcohol: None - Home Medications Home Medications: Ambulatory Orders Medication Instructions Recorded Citalopram Hydrobromide [Celexa] 20 mg PO DAILY 02/21/18 Quetiapine Fumarate [Seroquel] 300 mg PO BID 02/21/18 - Allergies Allergies/Adverse Reactions: Allergies Allergy/AdvReac Type Severity Reaction Status Date / Time Penicillins Allergy RASH Verified 03/06/18 18:05 Review of Systems ROS Statement: Except As Marked, All Systems Reviewed And Found Negative Constitutional: Negative for: Fever, Chills Cardiovascular: Negative for: Chest Pain Respiratory: Positive for: Cough (minimal). Negative for: Shortness of Breath, Hemoptysis Musculoskeletal: Positive for: Other (bilateral feet blisters). Negative for: Foot Pain (bilateral) Physical Exam - Reviewed Nursing Documentation Reviewed: Yes Vital Signs Reviewed: Yes - Physical Exam Appears: Positive for: Non-toxic, No Acute Distress Eye Exam: Positive for: EOMI, Normal appearance, PERRL ENT: Positive for: Normal ENT Inspection. Negative for: Pharyngeal Erythema Cardiovascular/Chest: Positive for: Regular Rate, Rhythm. Negative for: Murmur Respiratory: Positive for: Normal Breath Sounds. Negative for: Wheezing, Respiratory Distress Pulses-Dorsalis Pedis (L): 2+ Pulses-Dorsalis Pedis (R): 2+ Extremity: Positive for: Capillary Refill (<2 seconds to bilateral feet), Other (non-intact vesicles to bilateral plantar surface). Negative for: Tenderness ( bilateral plantar surface), Swelling (or surrounding erythema to bilateral plantar surface) Neurologic/Psych: Positive for: Alert, Oriented. Negative for: Motor/Sensory Deficits - ECG O2 Sat by Pulse Oximetry: 98 (RA) Pulse Ox Interpretation: Normal Medical Decision Making Medical Decision Making: Initial Impression: B/L feet pain Initial Plan: * Accucheck * Bacitracin oint applied and DSD applied to blisters. Time: 1815 --Accucheck: 82 Scribe Attestation: Documented by Binta Hanna, acting as a scribe for Ivan Malcolm PA-C. Provider Scribe Attestation: All medical record entries made by the Scribe were at my direction and personally dictated by me. I have reviewed the chart and agree that the record accurately reflects my personal performance of the history, physical exam, medical decision making, and the department course for this patient. I have also personally directed, reviewed, and agree with the discharge instructions and disposition. Disposition - Clinical Impression Clinical Impression: Friction blister of the foot - Patient ED Disposition Is Patient to be Admitted: No - Disposition Referrals: [facility] [Outside] Podiatry Clinic [Outside] Disposition: Routine/Home Disposition Time: 19:41 Condition: STABLE Additional Instructions: Follow up with [facility] or Podiatry Clinic for further evaluation. Return to ED immediately if symptoms worsen. Instructions: Blisters Forms: [facility] (Croatian) Print Language: CANADIAN
== END 2018-03-06 19:41 | disposition home or self-care (01) ==
LOC: H.ER 17:47
DX: S90.822A Blister (nonthermal), left foot, initial encounter (principal); Y92.89 Other specified places as the place of occurrence of the external cause; E11.9 Type 2 diabetes mellitus without complications; F20.9 Schizophrenia, unspecified; F31.9 Bipolar disorder, unspecified; Z88.0 Allergy status to penicillin

== ENCOUNTER 2018-05-03 08:56 | Emergency (ER) | payer MEDICAID ==
[2018-05-03 09:09] VITALS: RESP 16; TEMP 98; BMI 30.3
[2018-05-03] MEDS ORDERED: Clindamycin 600mg/50ml D5W 600 MG/50 ML VIAL IVPB ONE (09:19)
--- NOTE | 2018-05-03 09:26 | ED PDOC ---
Lower Extremity Pain/Injury Time Seen by Provider: 05/03/18 09:07 Chief Complaint (Nursing): Lower Extremity Problem/Injury Chief Complaint (Provider): Facial swelling History Per: Patient History/Exam Limitations: no limitations Onset/Duration Of Symptoms: Days (x3) Current Symptoms Are (Timing): Still Present Additional Complaint(s): 28 year old male presents to the ED complaining of pain and swelling to his lower lip, onset 3 days ago. Patient was seen at another ED and had an incision & drainage procedure performed as well as being prescribed antibiotics. Patient reports he has not been able to fill prescription. Additionally, patient is complaining of pain to his right foot. Patient has a history of bipolar disorder and is hearing voices and feels depressed. Denies fever, history of trauma, suicidal ideation, and homicidal ideation. PMD: None Provided Past Medical History Reviewed: Historical Data, Nursing Documentation, Vital Signs Vital Signs: Last Vital Signs Temp 98 F 05/03/18 09:07 Pulse 79 05/03/18 09:07 Resp 16 05/03/18 09:07 BP 129/86 05/03/18 09:07 Pulse Ox 99 05/03/18 09:07 - Medical History PMH: Bipolar Disorder, Depression, Diabetes, Schizophrenia Denies: Hepatitis, HIV, HTN, Seizures, Sexually Transmitted Disease - Surgical History Surgical History: No Surg Hx - Family History Family History: States: Unknown Family Hx Denies: MS - Home Medications Home Medications: Ambulatory Orders Medication Instructions Recorded Citalopram Hydrobromide [Celexa] 20 mg PO DAILY 02/21/18 Quetiapine Fumarate [Seroquel] 300 mg PO BID 02/21/18 Clindamycin [Cleocin] 300 mg PO TID #30 cap 05/03/18 Naproxen [Naprosyn] 500 mg PO Q12H #20 tab 05/03/18 Non-Formulary 1 ea .ROUTE Q6 #1 ea 05/03/18 - Allergies Allergies/Adverse Reactions: Allergies Allergy/AdvReac Type Severity Reaction Status Date / Time Penicillins Allergy RASH Verified 05/03/18 09:13 Review of Systems ROS Statement: Except As Marked, All Systems Reviewed And Found Negative Constitutional: Negative for: Fever ENT: Positive for: Mouth Pain (lower lip), Mouth Swelling (lower lip ) Musculoskeletal: Positive for: Foot Pain (right foot pain ) Psych: Positive for: Depression, Other (hallucinations) Physical Exam - Reviewed Nursing Documentation Reviewed: Yes Vital Signs Reviewed: Yes - Physical Exam Appears: Positive for: Non-toxic, No Acute Distress Head Exam: Positive for: ATRAUMATIC, NORMOCEPHALIC Skin: Positive for: Normal Color, Warm, Dry Eye Exam: Positive for: Normal appearance, EOMI, PERRL ENT: Positive for: Normal ENT Inspection, Other (mouth lower lip swollen, erythematous, and tender; draining purulent material, no extension to submandibular area; Throat clear, no swelling, no stridor ) Neck: Positive for: Normal, Supple Cardiovascular/Chest: Positive for: Regular Rate, Rhythm. Negative for: Murmur Respiratory: Positive for: Normal Breath Sounds. Negative for: Wheezing Gastrointestinal/Abdominal: Positive for: Normal Exam, Soft. Negative for: Tenderness Back: Positive for: Normal Inspection Extremity: Positive for: Normal ROM, Tenderness (right foot ), Pedal Edema, Swelling (mild swelling of right foot ). Negative for: Deformity Neurologic/Psych: Positive for: Alert, Oriented. Negative for: Motor/Sensory Deficits - Laboratory Results Result Diagrams: 05/03/18 09:30 05/03/18 09:30 - ECG O2 Sat by Pulse Oximetry: 99 (RA) Pulse Ox Interpretation: Normal Medical Decision Making Medical Decision Making: Time: 921 Plan: -- Alcohol Serum -- CMP -- Urine Drug Screen -- Uric Acid -- ED Urine Dipstick -- CBC with differentials -- Cleocin 600 mg Sodium Chloride 0.9% 50 mL IVPB -- Toradol 30 mg IVP -- Foot Right 3 Views XR Scribe Attestation: Documented by Mathew Eller, acting as a scribe for Dr. Skinny Mcdowell MD. Provider Scribe Attestation: All medical record entries made by the Scribe were at my direction and personally dictated by me. I have reviewed the chart and agree that the record accurately reflects my personal performance of the history, physical exam, medical decision making, and the department course for this patient. I have also personally directed, reviewed, and agree with the discharge instructions and disposition. Disposition - Clinical Impression Clinical Impression: Cellulitis, lip, Foot fracture - Patient ED Disposition Is Patient to be Admitted: No Counseled Patient/Family Regarding: Studies Performed, Diagnosis, Need For Followup, Rx Given - Disposition Referrals: Podiatry Clinic [Outside] [facility] [Outside] Disposition: Routine/Home Disposition Time: 11:00 Condition: FAIR Prescriptions: Clindamycin [Cleocin] 300 mg PO TID #30 cap Naproxen [Naprosyn] 500 mg PO Q12H #20 tab Non-Formulary 1 ea .ROUTE Q6 #1 ea Instructions: Foot Fracture (DC), Cellulitis (Skin Infection), Adult (DC) Forms: [facility] (Swedish)
[2018-05-03] MEDS ORDERED: Clindamycin 600mg/50ml NS 600 MG/50 ML BAG IVPB ONE (09:27)
[2018-05-03 09:45] LABS: BASO # 0.1 K/uL (0.0-0.2); BASO % 0.7 % (0.0-2.0); EOS # 0.2 K/uL (0.0-0.7); EOS % 1.2 % (0.0-4.0); HEMOGLOBIN 13.6 g/dL (12.0-18.0); LYMPH # 2.1 K/uL (1.0-4.3); LYMPH % 11.9 % (20.0-40.0); MEAN CELL VOLUME 86.1 fl (80.0-94.0); MEAN CORPUSCULAR HEMOGLOBIN 28.8 pg (27.0-31.0); MEAN CORPUSCULAR HGB CONC 33.5 g/dL (33.0-37.0); MEAN PLATELET VOLUME 8.2 fl (7.2-11.7); MONO # 1.4 K/uL (0.0-0.8); MONO % 7.9 % (0.0-10.0); NEUT # 13.7 K/uL (1.8-7.0); NEUT % 78.3 % (50.0-75.0); RBC 4.73 Mil/uL (4.40-5.90); RED CELL DISTRIBUTION WIDTH 13.4 % (11.5-14.5); WHITE BLOOD COUNT 17.5 K/uL (4.8-10.8)
[2018-05-03 09:54] LABS: ALB/GLOB RATIO 1.2 (1.0-2.1); ALBUMIN 4.1 g/dL (3.5-5.0); ALT/SGPT 32 U/L (21-72); AST/SGOT 29 U/L (17-59); BLOOD UREA NITROGEN 17 mg/dl (9-20); GFR AFRICAN-AMERICAN > 60; GFR NON-AFRICAN AMERICAN > 60
[2018-05-03] MEDS ORDERED: Potassium Chloride 20 mEq ER Tab PO ONE ×2 (09:56→10:48)
--- NOTE | 2018-05-03 10:32 | RAD ---
PROCEDURE: Right Foot Radiographs. HISTORY: pain COMPARISON: None. FINDINGS: BONES: There is an oblique potentially comminuted fracture at the proximal diametaphysis 2nd metatarsal bone with limited varus angulation of the major fracture fragment and prominent callus formation at the fracture site. This indicates fractured immediate stage of healing. JOINTS: It is unclear whether this is a potential articular fracture at the 2nd tarsometatarsal articulation. No subluxation or dislocation. SOFT TISSUES: Normal. OTHER FINDINGS: None. IMPRESSION: Fracture abdomen intermediate stage healing is identified at the 2nd metatarsal bone without subluxation or dislocation appreciated.
[2018-05-03 12:19] VITALS: BP 122/80; PULSE 80; O2SAT 100
--- NOTE | 2018-05-03 14:41 | CP.PCM.PN ---
<AlcidesCoreyberlinjing - Last Filed: 05/03/18 14:34> Subjective - Date & Time of Evaluation Date of Evaluation: 05/03/18 Time of Evaluation: 14:34 - Subjective Subjective: Podiatry Consult note: Dr. Baltazar 28 year old male with PMHx of Bipolar Disorder, Depression, Schizophrenia was seen and evaluated at bedside in ED for right foot pain. Patient reports that he does not have a car and has been doing a lot of walking lately. Reports that the right foot recently started swelling and started to have pain. Denies of having any injury to the right foot recently. Denies of any trauma to the right foot as well. States that he was recently seen in another ED elsewhere for I&D of his lip. Denies of having any foot treatment at the time of that ED visit. Reports that his pain is 10/10 on VAS today. Denies of having any prior treatment or taking any pain medications. Denies of having recent N/V/C/SOB/ headache. Denies of any other pedal complains at this time. PMHx: Bipolar Disorder, Depression, Schizophrenia PSHx: Left foot surgery Allergies: Penicillins SHx: Reports he smokes 1/2 a pack a day for many years, Cocaine user every other day, denies EtOH use Objective - Vital Signs/Intake and Output Vital Signs (last 24 hours): Temp Pulse Resp BP Pulse Ox 98 F 80 16 122/80 100 05/03/18 12:18 05/03/18 12:18 05/03/18 12:18 05/03/18 12:18 05/03/18 12:18 - Labs Labs: 05/03/18 09:30 05/03/18 09:30 - Constitutional Appears: Well, Non-toxic, No Acute Distress - Extremities Exam Additional comments: Bilateral LE focused exam VASC: Unable to palpate DP pulses on the right due to edema, PT pulses are palpable 2/4 b/l, Cap refill time: < 3 sec to all digit, Temp gradient: warm to cool from proximal to distal, diffuse localized mild edema noted on the dorsum of the right midfoot level DERM: no open lesion, no erythema, no clinical suspicion of active infection NEURO: Protective sensation is grossly intact ORTHO: Pain on palpation on the dorsum of the right foot at the level of 2nd, 3rd metatarsal shaft/base, Patient is guarding during exam due to pain, AROM at the MTPJ intact, AROM at the ankle joint present, unable to assess the MMT; unable to perform piano vaughan test due to pain in the area, no pain on palpation of the medial and lateral collateral ligaments at the ankle joint, Prett negative - Neurological Exam Neurological Exam: Alert, Awake, Oriented x3 Assessment and Plan - Assessment and Plan (Free Text) Assessment: 28 year old male with PMHx of Bipolar Disorder, Depression, Schizophrenia and chronic cocaine use was evaluated for 1). chronic 2nd metatarsal shaft fracture 2). possibly Lisfranc's ligament injury Plan: Patient seen and evaluated at bedside Discussed plan with attending Dr. Baltazar X-rays of the foot ordered/reviewed - long oblique radiolucent line extending from medial midshaft towards the base of the 2nd metatarsal laterally noted with increase in diffuse radiodense sclerosis consistent with bone callus formation surrounding the fracture; minimal displacement noted of the fracture fragments Patient placed in a well padded posterior splint Patient provided crutches Educated patient that he may have a ligamentous injury along with the healing fracture Educated patient the the importance of following up in the podiatry clinic for further imaging testing Educated patient to remain non-weight bearing to RLE using crutches Educated patient of the RICE protocol Patient demonstrated verbal understanding of the plan and agreed to follow up in the clinic tomorrow Thank you for this interesting podiatry consult and allowing to take part in patient care. <Yoan Baltazar - Last Filed: 05/04/18 11:56> Objective - Vital Signs/Intake and Output Vital Signs (last 24 hours): Temp Pulse Resp BP Pulse Ox 98 F 80 16 122/80 100 05/03/18 12:18 05/03/18 12:18 05/03/18 12:18 05/03/18 12:18 05/03/18 12:18 - Labs Labs: 05/03/18 09:30 05/03/18 09:30 Assessment and Plan - Assessment and Plan (Free Text) Plan: Discussed cased with residence and recommended an MRI for evaluation of soft tissue and fracture as well. discussed with resident the high white count which seemed to be attributed to the lip. Advised resident to ensure follow up as to look into other potabilities of fracture without history of trauma.
== END 2018-05-03 12:20 | disposition home or self-care (01) ==
LOC: H.ER 08:56
DX: K13.0 Diseases of lips (principal); S92.901A Unspecified fracture of right foot, initial encounter for closed fracture; X58.XXXA Exposure to other specified factors, initial encounter; E11.9 Type 2 diabetes mellitus without complications; F17.210 Nicotine dependence, cigarettes, uncomplicated; Z86.59 Personal history of other mental and behavioral disorders; Z88.0 Allergy status to penicillin
CPT/HCPCS: 73630; 80053; 80320; 84550; 85025; 96365; 96375; 99283; J1885